=== PATIENT | female | born 1965 | race Caucasian/White ===

== ENCOUNTER 2019-11-19 11:46 | Outpatient (CLI) | payer OTHER | END 2019-11-19 22:18 | disposition home or self-care (01) | LOC: SMI 11:46 | PROVIDERS: ATTEND Anesthesiology Pain Medicine | DX: M43.16 Spondylolisthesis, lumbar region (principal); M51.26 Other intervertebral disc displacement, lumbar region | CPT/HCPCS: 72148 ==

== ENCOUNTER 2020-08-19 11:58 | Outpatient (CLI) | payer OTHER | END 2020-08-19 20:35 | disposition home or self-care (01) | LOC: SRD 11:58 | DX: R05 Cough (principal) | CPT/HCPCS: 70220-TC; 71046-TC ==